=== PATIENT | female | born 1975 | race Asian ===

== ENCOUNTER 2019-06-09 21:47 | Inpatient (IN) | payer OTHER ==
[~2019-06-09] VITALS: Ht 157.5 cm; Wt 83.5 kg
[2019-06-09 21:55] VITALS: BP 140/80
--- NOTE | 2019-06-09 21:57 | NUR ---
TO LOBBY A/W BED AMBULATORY
--- NOTE | 2019-06-09 22:42 | NUR ---
PT AMBULATED TO BED 9.
[2019-06-09] MEDS ORDERED: ONDANSETRON 4 MG/2 ML VIAL IVP ONE (22:55)
[2019-06-09] MEDS ORDERED: NACL 0.9% 1,000 ML IV ONE (22:55)
[2019-06-09] MEDS ORDERED: KETOROLAC 30 MG/ML VIAL IVP ONE (22:55)
[2019-06-09 23:31] LABS: BASOPHILS % (AUTO) 0.3 % (0.0-2.0); EOSINOPHILS % (AUTO) 0.1 % (0.0-4.0); HEMATOCRIT 36.7 % (36-48); HEMOGLOBIN 12.7 g/dL (12.0-16.0); LYMPHOCYTES # (AUTO) 0.7 K/uL (2.5-16.5); MEAN CORPUSCULAR HEMOGLOBIN 30 pg (27-31); MEAN CORPUSCULAR HGB CONC 35 g/dL (33-37); MEAN CORPUSCULAR VOLUME 88.1 fL (80-94); MONOCYTES # (AUTO) 0.5 K/uL (0.8-1.0); MONOCYTES % (AUTO) 4.3 % (1.7-9.3); NEUTROPHILS # (AUTO) 9.6 K/uL (1.8-7.7); NEUTROPHILS % (AUTO) 88.4 % (42.2-75.2); PLATELET COUNT (AUTO) 264 K/uL (140-450); RED BLOOD CELL COUNT(AUTO) 4.17 MIL/uL (4.20-5.40); RED CELL DISTRIBUTION WIDTH 15.6 % (11.6-13.7); WHITE BLOOD COUNT (AUTO) 10.8 K/uL (4.8-10.8)
[2019-06-09 23:47] LABS: LYMPHOCYTES % (AUTO) 6.9 % (20.5-51.1)
[2019-06-09 23:49] LABS: ALBUMIN 4.2 g/dL (3.4-5.0); ANION GAP 9.3 (8-16); CARBON DIOXIDE 34.3 mmol/L (21-32); CREATININE 0.7 mg/dL (0.6-1.3); POTASSIUM 3.6 mmol/L (3.5-5.1); TOTAL BILIRUBIN 0.6 mg/dL (0.0-1.0)
--- NOTE | 2019-06-10 00:14 | NUR ---
44 Y/O FEMALE C/O ABD PAIN X 183 YESTERDAY. RATES PAIN 10/10 AND DESCRIBES IT TWISTING. +N,V (X2 EPISODES), PASSING GAS. LAST BM WAS YESTERDY AM AND DESCRIBED IT HARD. ABD IS HYPOACTIVE ON UPPER LEFT QUAD, SOFT, ROUND, TENDERNESS. A&O X4. STEADY GAIT. DENIES ANY BLOOD IN STOOL OR IN VOMIT. NKA. PMH: C/S
--- NOTE | 2019-06-10 00:14 | NUR ---
PT TRANSFER TO CT VIA W/C.
[2019-06-10 00:35] LABS: APPEARANCE,URINE CLOUDY (CLEAR); BILIRUBIN,URINE NEGATIVE (NEGATIVE); BLOOD, URINE NEGATIVE (NEGATIVE); COLOR,URINE YELLOW (YELLOW); LEUKOCYTE ESTERASE ,URINE NEGATIVE (NEGATIVE); NITRITE, URINE POSITIVE (NEGATIVE); PH,URINE 6.5 (5.0-9.0); UGLUCOSE NEGATIVE (NEGATIVE)
[2019-06-10] MEDS ORDERED: ONDANSETRON 4 MG/2 ML VIAL IVP ONE (00:35)
[2019-06-10] MEDS ORDERED: NACL 0.9% 1,000 ML IV ONE (00:35)
[2019-06-10] MEDS ORDERED: MORPHINE SULFATE 4 MG/ML SYR IVP ONE (00:35)
[2019-06-10] MEDS ORDERED: cefTRIAXone 1,000 MG VIAL ONE (01:07)
--- NOTE | 2019-06-10 01:30 | NUR ---
PATIENT ALERT AND AWAKE, BREATHING EVEN AND UNLABORED
[2019-06-10] MEDS ORDERED: MORPHINE SULFATE 2 MG/ML SYR IVP ONE (01:35)
[2019-06-10] MEDS ORDERED: ALBUTEROL 0.083% 2.5 MG/3 ML NEBU INH PRN (01:45)
[2019-06-10] MEDS ORDERED: HYDROcodone/APAP 5/325 MG 1 TAB TAB PO PRN (01:45)
[2019-06-10] MEDS: DEXT 5% /NACL 0.9% 1,000 ML IV SCH ×3 (01:45→21:45)
[2019-06-10] MEDS ORDERED: ACETAMINOPHEN 325 MG TAB PO PRN (01:45)
[2019-06-10] MEDS ORDERED: ONDANSETRON 4 MG/2 ML VIAL IVP PRN (01:45)
[2019-06-10] MEDS ORDERED: MORPHINE SULFATE 4 MG/ML SYR IVP PRN (01:45)
[2019-06-10] MEDS ORDERED: cloNIDine 0.1 MG TAB PO PRN (01:50)
--- NOTE | 2019-06-10 01:53 | NUR ---
Dr. De La Torre examining patient.
--- NOTE | 2019-06-10 02:30 | NUR ---
PATIENT ALERT AND AWAKE, BREATHING EVEN AND UNLABORED
[2019-06-10 02:33] LABS: PROTHROMBIN TIME 9.8 secs (10.8-13.4)
--- NOTE | 2019-06-10 03:20 | NUR ---
Note brijesh in EDM - 06/10/19 at 0331 by [facility] Patient will be admitted to care of DR. KRAUSE. Admited to TELE. Will go to room 105B. Belongings list completed. Report to MIRNA PLATA.
--- NOTE | 2019-06-10 03:30 | NUR ---
Patient will be admitted to care of Dr Dent. Admited to Med-surge. Will go to room 105A. Belongings list completed. Report to Myrna BRADLEY.
[2019-06-10 03:48] VITALS: BP 130/70
--- NOTE | 2019-06-10 03:48 | NUR ---
RECIEVED PT FROM ER / [facility] , [id number] . NID , IV SITE INTACT AND PATENT , ADM. ASSESESSMENT DONE - MRSA SENT TO LAB , W/ NGT INTACT AND PATENT - AUSCULTATED. - NPO RE INSTRUCTED . POC DISCUSSED AND VERBAL;IZE UNDERSTANDING - CALL LIGHT WITHIN REACH - WILL CONT. TO MONITOR.
[2019-06-10] MEDS ORDERED: PIPERACILLIN/TAZOBACTAM 3.375 GM VIAL IV ONE ×2 (04:11→23:46)
[2019-06-10] MEDS: PIPERACILLIN/TAZOBACTAM 3.375 GM in DEXTROSE 5% 50 ML IV SCH ×5 (04:19→23:50)
--- NOTE | 2019-06-10 05:24 | NUR ---
CONNECT SUCTION TO LOW INTERMITTENT SUCTION T.O BY DR. BRIZUELA - PROCEDURE TOLERATED.
--- NOTE | 2019-06-10 06:53 | NUR ---
MADE ROUNDS , NOT MUCH DISCHARGE FROM THE SUCTION - WILL CONT. TO MONITOR.
--- NOTE | 2019-06-10 07:30 | NUR ---
RECEIVED REPORT FROM NIGHT NURSE. PATIENT AWAKE, ALERT AND ORIENTED X4. RESPIRATION EVEN AND UNLABORED. INTRODUCED SELF. IV INTACT AND PATENT TO RIGHT AC HAND. NGT IN PLACE TO RIGHT NARES ON LOW INTERMITTENT SUCTION. BED IN LOW POSITION. PLANS OF CARE DISCUSSED. CALL LIGHT WITHIN REACH.
--- NOTE | 2019-06-10 07:55 | NUR ---
NOTIFIED PHARMACY ZOSYN IV WAS GIVEN @ 0419 AM BY NIGHT NURSE. ZOSYN IV SCHEDULED @ 0600 IS NOT GIVEN.
[2019-06-10 08:00] VITALS: BP 131/82
--- NOTE | 2019-06-10 08:55 | NUR ---
PATIENT HAS BEEN SCREENED AND CATEGORIZED MODERATE NUTRITION RISK. PATIENT WILL BE SEEN WITHIN 3-5 DAYS OF ADMISSION. 06/12/19 06/14/[address]
--- NOTE | 2019-06-10 09:30 | NUR ---
ROUNDS MADE. NO S/S OF DISTRESS NOTED. PT ALERT AND ORIENTED X4. NGT SUCTIONING WELL. NO OUTPUT AT THIS TIME.
--- NOTE | 2019-06-10 11:26 | NUR ---
Sec Accountant Note: Basic Screen: Yes High Risk DC Screen [place]: JAREK Darling Relationship: SISTER Pre-Admission Living Arrangements: Lives with Other Prior ADL Independent Current Home Health Name/Tel: N/A Current DME/02 Name/Tel: N/A Current Hospice Name/Tel: N/A Current Dialysis Name/Tel: N/A Healthcare Decision Maker: Patient Advance Directive No Physician Orders for Life Sustaining Treatment Form No Patient/Family Have Educational Needs No Information Taught: Advance Directive Person Taught: Patient Teaching Tools: Verbal Factors Affecting Learning: None Participation Level: Refused Evaluation: Verbalizes Understanding Needs Additional Education: No Discipline: Case Mgt/Social Svcs Tentative Discharge Plan/Destination: No Needs Identified Will require assistance post discharge: No Referred to Management Professional: No Tentative Discharge Plan Summary: Patient is a 44-year-old female admitted for small bowel obstruction. Patient has no significant PMHX. Patient was admitted from home where she lives with her boyfriend and infant. SW met with patient at bedside to verify demographics. Patient stated that her sister is currently tending to infant. Patient reported no history of mental health and no history of substance abuse. SW assessed for any risk factors. Patient's tentative discharge plan is for patient to return home. No further needs identified. Signature: SREE Bell Date: Jun 10, 2019 Time: 11:26
--- NOTE | 2019-06-10 11:30 | NUR ---
ROUNDS MADE. NO S/S OF DISTRESS NOTED. PT ALERT AND ORIENTED X4. NGT SUCTIONING WELL. NO OUTPUT AT THIS TIME.
--- NOTE | 2019-06-10 13:30 | NUR ---
ROUNDS MADE. NO S/S OF DISTRESS NOTED. PT ASLEEP, EASILY AROUSABLE BY NAME OR TOUCH. NGT SUCTIONING WELL. NO OUTPUT AT THIS TIME.
--- NOTE | 2019-06-10 15:30 | NUR ---
ROUNDS MADE. NO S/S OF DISTRESS NOTED. PT ALERT AND ORIENTED X4. NGT SUCTIONING WELL. NO OUTPUT AT THIS TIME.
[2019-06-10 16:00] VITALS: BP 131/79
--- NOTE | 2019-06-10 16:00 | NUR ---
PATIENT WITH RADIOLOGY FOR SMALL BOWEL FOLLOW THROUGH XRAY. PER RADIOLOGY PATIENT WILL HAVE TO BE DISCONNECTED FROM THE SUCTION UNTIL FURTHER NOTICE FROM THEM DUE TO NEEDS OF FURTHER IMAGING.
--- NOTE | 2019-06-10 18:00 | NUR ---
PATIENT AAOX4. PATIENT'S DAUGHTER AT BEDSIDE. NO S/S OF DISTRESS NOTED. NGT IN PLACE, NOT CONNECTED TO SUCTION PER RADIOLOGY INSTRUCTION.
--- NOTE | 2019-06-10 18:43 | NUR ---
RECEIVED CALL FROM RADIOLOGY RESUME INTERMITTENT SUCTIONING VIA NGT.
--- NOTE | 2019-06-10 18:45 | NUR ---
PATIENT REPORTED THAT SHE TAKES LEVOTHYROXINE 125MCG FOR HOME MEDICATION. MEDICATION ADDED TO MEDICATION RECON.
--- NOTE | 2019-06-10 19:30 | NUR ---
REPORT GIVEN TO NIGHT NURSE. PATIENT IN STABLE CONDITION.
--- NOTE | 2019-06-10 19:35 | NUR ---
RECEIVED PT IN STABLE CONDITION FROM AM NURSE. AWAKE,ALERT AND ORIENTED X4. AMBULATORY TO THE BATHROOM. WITH NGT TO INTERMITTENT SUCTION. C/O SLIGHT HEADACHE. COLD COMPRESS DONE. WILL CONTINUE TO MONITOR. IVF INFUSING WELL ON THE RT AC G20 . CLEAR AND PATENT. PLAN OF CARE DISCUSSED AND VERBALIZED UNDERSTANDING. FREQ ROUNDS NEEDED. BED ON LOW POSITION. SIDE RAIL UP X2,SIDE RAILS UP X2. CALL LIGHT PLACED WITHIN EASY REACH. WILL CONTINUE TO MONITOR.
[2019-06-10] MEDS ORDERED: LEVO0.1212 PO (19:44)
--- NOTE | 2019-06-10 20:25 | NUR ---
RECEIVED PATIENT ON ROOM AIR, PULSE OX SAT 94%. PT DENIES SOB. PT MADE AWARE OF ORDERED MEDICATION FREQUENCY AND INSTRUCTED TO CALL NEEDED FOR SOB. NO ACUTE RESPIRATORY DISTRESS NOTED AT THIS TIME. WILL CONTINUE TO MONITOR.
--- NOTE | 2019-06-10 20:35 | NUR ---
MADE ROUNDS. PT SLEEPING. NO S/S OF ANY DISCOMFORT /PAIN NOTED.
--- NOTE | 2019-06-10 22:30 | NUR ---
PY ASLEEP. NO S/S OF ANY DISCOMFORT. IVF INFUSING WELL . NGT TO INTERMITTENT SUCTION.
--- NOTE | 2019-06-11 00:30 | NUR ---
PT ASLEEP. VITLA SIGNS TAKEN. BP 127/78. NO C/O PAIN NOTED.
[2019-06-11 00:39] VITALS: BP 127/78
--- NOTE | 2019-06-11 03:00 | NUR ---
PT IS ASLEEP. NO S/S OF PAIN NOTED. WILL CONTINUE TO MONITOR.
[2019-06-11] MEDS: DEXT 5% /NACL 0.9% 1,000 ML IV SCH ×3 (03:18→12:44)
[2019-06-11] MEDS ORDERED: OSC500 PO (04:51)
--- NOTE | 2019-06-11 05:00 | NUR ---
PT WAS ASSISTED UP TO THE BATHROOM. VOIDED AND SHE SAID SHE HAD A SMALL LIQUID YELLOWISH BROWN STOOL.
[2019-06-11] MEDS: PIPERACILLIN/TAZOBACTAM 3.375 GM in DEXTROSE 5% 50 ML IV SCH ×2 (05:35→12:00)
--- NOTE | 2019-06-11 06:30 | NUR ---
PT IN STABLE CONDITION. NO C/O PAIN NOTED.
--- NOTE | 2019-06-11 07:15 | NUR ---
ENDORSED PT IN STABLE CONDITION TO AM NURSE.
--- NOTE | 2019-06-11 07:16 | NUR ---
RECEIVED PATIENT FROM THE [employer]WYER NURSE, JW, FOR CONTINUITY OF CARE. PATIENT IS AAOX4, RESPIRATIONS EVEN AND UNLABORED, ROOM AIR. VISIBLE CHEST RISE NOTED. MED-SURG. ABDOMEN SOFT AND NONTENDER. NGT IN PLACE. INTERMITTENT SUCTION. NPO. OUTPUT OF 120 ML PER C[employer]ER NURSE. SKIN WARM, DRY, AND INTACT. IV IN THE RIGHT AC G20 RUNNING D5NS AT 100 ML/HR. IV PATENT AND INTACT. PATIENT IS CONTINENT. AMBULATES WITH ASSIST TO THE BATHROOM. FALL PRECAUTIONS IN PLACE. BED IN LOW POSITION. CALL LIGHT IS WITHIN REACH. WILL CONTINUE TO MONITOR.
[2019-06-11 07:46] LABS: BASOPHILS % (AUTO) 0.2 % (0.0-2.0); EOSINOPHILS % (AUTO) 0.7 % (0.0-4.0); HEMATOCRIT 32.1 % (36-48); LYMPHOCYTES # (AUTO) 1.3 K/uL (2.5-16.5); LYMPHOCYTES % (AUTO) 27.7 % (20.5-51.1); MEAN CORPUSCULAR HEMOGLOBIN 30 pg (27-31); MEAN CORPUSCULAR HGB CONC 34 g/dL (33-37); MEAN CORPUSCULAR VOLUME 88.2 fL (80-94); MONOCYTES # (AUTO) 0.3 K/uL (0.8-1.0); MONOCYTES % (AUTO) 7.4 % (1.7-9.3); PLATELET COUNT (AUTO) 226 K/uL (140-450); RED BLOOD CELL COUNT(AUTO) 3.64 MIL/uL (4.20-5.40); RED CELL DISTRIBUTION WIDTH 15.5 % (11.6-13.7); WHITE BLOOD COUNT (AUTO) 4.7 K/uL (4.8-10.8)
[2019-06-11 07:53] LABS: ANION GAP 6.8 (8-16); CARBON DIOXIDE 31.4 mmol/L (21-32); CREATININE 0.6 mg/dL (0.6-1.3); POTASSIUM 4.2 mmol/L (3.5-5.1)
[2019-06-11 08:00] VITALS: BP 137/80
[2019-06-11 08:00] LABS: MAGNESIUM 2.1 mg/dL (1.8-2.4); PHOSPHORUS 4.2 mg/dL (2.5-4.9)
--- NOTE | 2019-06-11 08:01 | NUR ---
VITAL SIGNS CHECK. PATIENT IS COMPLAINING OF PAIN 09/16. PATIENT REFUSED PAIN MEDICATION AT THIS TIME.
--- NOTE | 2019-06-11 09:00 | NUR ---
WILL PAGE FOR PATIENT'S HOME MEDICATIONS
--- NOTE | 2019-06-11 09:30 | NUR ---
DR. HENRIQUEZ DISCONTINUED NGT. OUTPUT OF 50 ML. ADVANCED DIET TO FULL LIQUID.
[2019-06-11] MEDS ORDERED: CALCIUM CARBONATE 500 MG TAB PO SCH ×2 (09:37→21:00)
--- NOTE | 2019-06-11 09:43 | NUR ---
GIVEN SYNTHROID PO. WILL GIVE CALCIUM SUPPLEMENT AFTER 4HRS PER PATIENT. GIVEN MEDICATION EDUCATION. PATIENT VERBALIZED UNDERSTANDING. BED IN LOW POSITION. CALL LIGHT IS WITHIN REACH. WILL CONTINUE TO MONITOR
[2019-06-11] MEDS ORDERED: LEVOTHYROXINE 0.025 MG TAB PO SCH (09:45)
--- NOTE | 2019-06-11 11:02 | NUR ---
PATIENT AMBULATED TO THE RESTROOM. REQUESTED CRANBERRY JUICE AND UNDERWEAR
--- NOTE | 2019-06-11 12:01 | NUR ---
HANG ZOSYN VIA IVPB. GIVEN MEDICATION EDUCATION. PATIENT VERBALIZED UNDERSTANDING. BED IN LOW POSITION. CALL LIGHT IS WITHIN REACH. WILL CONTINUE TO MONITOR
[2019-06-11 13:03] VITALS: BP 117/63
--- NOTE | 2019-06-11 14:48 | NUR ---
DISCHARGE PLANNING: THIS IA A 44 Y/O FEMALE PATIENT FROM HOME WHO CAME IN DUE TO ABDOMINAL PAIN. PAST MEDICAL HISTORY INCLUDE THYROID CA S/P THYROIDECTOMY, HYPOTHYROIDISM, APPENDECTOMY. INITIAL DIAGNOSIS OF SMALL BOWEL OBSTRUCTION. CURRENT LABS INCLUDE WBC 4.7, H/H 11.0/32.1, NA/K 143/4.2, BUN/CREA 4/0.6. FOR DC TODAY.
--- NOTE | 2019-06-11 15:00 | NUR ---
DISCHARGED PATIENT VIA WHEELCHAIR. SISTER IS WITH THE PATIENT. PATIENT DENIES ABDOMINAL PAIN, SOB, CHEST PAIN. PATIENT IS IN STABLE CONDITION.
--- NOTE | 2019-06-11 15:01 | NUR ---
GIVEN DISCHARGE INSTRUCTIONS. TO FOLLOW UP WITH PCP. IF SYMPTOMS GET WORSE, CALL 911 OR GO TO EMERGENCY. NO FURTHER QUESTIONS.
--- NOTE | 2019-06-11 15:15 | NUR ---
REMOVED ID BAND AND DISCONTINUED IV. PATIENT IS UP TO DATE WITH FLU VACCINE. PNA VACCINE IS N/A.
[2019-06-12] MEDS ORDERED: LEVOTHYROXINE 0.025 MG TAB PO SCH (06:30)
== END 2019-06-11 15:15 | disposition home or self-care (01) | DRG 394 ==
LOC: MED 21:47 → MTU 06-10 01:43
PROVIDERS: ADMIT Internal Medicine; ATTEND Internal Medicine
PROC: 0D9670Z Drainage of Stomach with Drainage Device, Via Natural or Artificial Opening (ICD-10-PCS; principal; 2019-06-10)
DX: K63.89 Other specified diseases of intestine (principal); O86.20 Urinary tract infection following delivery, unspecified; O99.63 Diseases of the digestive system complicating the puerperium; O99.285 Endocrine, nutritional and metabolic diseases complicating the puerperium; O99.215 Obesity complicating the puerperium; K52.9 Noninfective gastroenteritis and colitis, unspecified; E89.0 Postprocedural hypothyroidism; E66.9 Obesity, unspecified
CPT/HCPCS: 36415; 71045; 74250; 80048; 80053; 81003; 83605; 83690; 83735; 84100; 85025; 85610; 85730; 86886; 86900; 86901; 87081; 96365; 96375; 99285; J0696; J1885; J2270; J2405; J2543; J7030; J7042; J7060; Q0092